=== PATIENT | male | born 1995 | race African-American/Black ===

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

== ENCOUNTER 2017-11-14 10:15 | Emergency (ER) | payer OTHER ==
[~2017-11-14] VITALS: Ht 188 cm; Wt 78.5 kg
[~2017-11-14 10:15] MED LIST: QUETIAPINE FUM300 MG PO
[2017-11-14 10:25] VITALS: BP 131/79
[2017-11-14 11:16] LABS: HEMATOCRIT 41.1 % (38.0-50.0); HEMOGLOBIN 14.7 G/DL (12.5-16.6); MCH 30.4 PG (29.0-34.0); MCHC 35.8 G/DL (30.0-36.0); MCV 85.1 FL (86-99); PLATELET COUNT 218 K/uL (156-360); RBC DIS.WIDTH-CV 11.4 % (11.8-14.6); RBC DIS.WIDTH-SD 34.7 % (39-53); RED BLOOD COUNT 4.83 M/uL (4.00-5.50); WHITE BLOOD COUNT 3.1 K/uL (4.1-10.2)
[2017-11-14 11:24] LABS: CHLORIDE 106 mEq/L (99-109); POTASSIUM 4.2 mEq/L (3.7-5.4); SODIUM 139 mEq/L (136-147)
[2017-11-14 11:25] LABS: GLUCOSE 88 mg/dL (70-99)
[2017-11-14 11:29] LABS: CREATININE 1.1 mg/dL (0.6-1.3); GFR ESTIMATE (CALCULATED) > 59 mL/min/ (58.99-99999); SERUM ETHYL ALCOHOL < 10 mg/dL
[2017-11-14 11:30] LABS: UREA NITROGEN (BUN) 11 mg/dL (9-23)
[2017-11-14] MEDS ORDERED: ATARAX,VISTARIL50 MG PO (12:12)
== END 2017-11-14 12:29 | disposition home or self-care (01) ==
LOC: EME 10:15
PROVIDERS: Emergency Medicine
DX: F41.9 Anxiety disorder, unspecified (principal); F20.9 Schizophrenia, unspecified; F32.9 Major depressive disorder, single episode, unspecified
CPT/HCPCS: 80048; 81003; 85027; 90839; 99281; 99283; G0480